=== PATIENT | male | born 1985 | race Caucasian/White ===

== ENCOUNTER 2020-11-30 16:59 | Emergency (ER) | payer SELFPAY ==
[~2020-11-30 16:59] MED LIST: FLEXERIL 10 MG10 MG PO; IBUPROFEN800 MG PO; ZITHROMAX250 MG PO
== END 2020-11-30 20:37 | disposition home or self-care (01) ==
LOC: ER1 16:59
DX: H93.19 Tinnitus, unspecified ear (principal); Z88.0 Allergy status to penicillin; F17.210 Nicotine dependence, cigarettes, uncomplicated
CPT/HCPCS: 99282